=== PATIENT | male | born 1960 | race Caucasian/White ===

== ENCOUNTER 2017-08-31 09:37 | Inpatient (IN) | payer MEDICAID ==
[~2017-08-31] VITALS: Ht 167.6 cm; Wt 69.9 kg
[2017-08-31] MEDS ORDERED: METHYLPREDNISOLONE SOD SUCC 125 MG/2 ML VIAL IV STA (09:48)
[2017-08-31] MEDS ORDERED: LORAZEPAM 2MG/ML CPJ ONE (09:51)
[2017-08-31] MEDS ORDERED: ALBUTEROL (0.083%) 2.5MG/3ML NEB HHN SCH (10:00)
[2017-08-31] MEDS ORDERED: LORAZEPAM 2MG/ML CPJ IV ONE ×2 (10:00→10:30)
[2017-08-31 10:11] LABS: HEMATOCRIT. 25.8 % (42.0-52.0); HEMOGLOBIN. 8.8 g/dL (14.0-18.0); MEAN CORPUSCULAR HEMOGLOBIN 30.3 pg (28.0-32.0); MEAN CORPUSCULAR VOLUME 89.3 fL (80.0-94.0); MEAN PLATELET VOLUME 7.5 fl (7.4-10.4); PLATELET 307 x1000/uL (130-400); RED BLOOD CELL COUNT 2.89 mill/uL (4.7-6.1); RED CELL DISTRIBUTION WIDTH 21.3 % (11.6-14.6)
[2017-08-31 10:19] LABS: CARBON DIOXIDE 29 mEq/L (21-32); CHLORIDE 97 mEq/L (98-107)
[2017-08-31] MEDS ORDERED: AZITHROMYCIN 500 MG in DEXT 5% WATER 250 ML IV SCH (10:45)
[2017-08-31] MEDS ORDERED: CEFTRIAXONE 1 G PREMIX 50 ML IV ONE (10:45)
[2017-08-31 11:12] LABS: BG CARBOXYHEMOGLOBIN 0.3 % (0.5-1.5); BG DEOXYHEMOGLOBIN 0.6 % (0.0-5.0); BG FRACTION INSPIRED OXYGEN 100; BG HCO3 ACT 25.4 mmol/L (22.0-26.0); BG METHEMOGLOBIN 0.3 % (0.0-1.5); BG OXYGEN SATURATION 99.4 % (92.0-98.5); BG OXYHEMOGLOBIN 98.8 % (94.0-97.0); BG PCO2 30.9 mmHg (35.0-45.0); BG PH 7.533 (7.350-7.450); BG PO2 218.1 mmHg (75.0-100.0); BG SAMPLE SITE RIGHT BRACHIAL; BG TOTAL HEMOGLOBIN 9.2 g/dL (12.0-18.0); BG VENT MODE MASK - NRB
[2017-08-31 11:13] LABS: CLARITY URINE CLOUDY (CLEAR); COLOR URINE YELLOW (YELLOW); GLUCOSE URINE NEGATIVE (NEGATIVE); KETONES URINE NEGATIVE (NEGATIVE); LEUKOCYTE ESTERASE URINE 3+ (NEGATIVE); NITRITE URINE NEGATIVE (NEGATIVE); OCCULT BLOOD URINE 1+ (NEGATIVE); PH URINE 7.5 (4.5-8.0); PROTEIN URINE 4+ (NEGATIVE); SPECIFIC GRAVITY URINE 1.015 (1.005-1.030); UROBILINOGEN URINE 0.2 E.U./dL (0.2-1.0)
[2017-08-31 11:32] LABS: PLATELET ESTIMATE NORMAL
[2017-08-31] MEDS ORDERED: MAGNESIUM/ALUMINUM HYDROXIDE/SIMETHICONE 30ML UDC PO PRN (15:45)
[2017-08-31] MEDS ORDERED: LORAZEPAM 2MG/ML CPJ IV PRN (15:45)
[2017-08-31] MEDS ORDERED: ACETAMINOPHEN 325MG TABLET PO PRN (15:45)
[2017-08-31] MEDS ORDERED: IPRATROPIUM/ALBUTEROL 0.5-3(2.5)MG/3ML NEB INH PRN (15:45)
[2017-08-31] MEDS ORDERED: ENOXAPARIN 40MG/0.4ML SYR SUBCUT SCH (15:45)
[2017-08-31] MEDS ORDERED: GUAIFENESIN 200MG/10ML SUGAR FREE UDC PO PRN (15:45)
[2017-08-31] MEDS ORDERED: ENOXAPARIN 30MG/0.3ML SYR SUBCUT SCH ×2 (18:00→21:00)
[2017-08-31] MEDS ORDERED: LEVOFLOXACIN 500MG PREMIX 100 ML IV SCH ×2 (18:00→21:00)
[2017-08-31 18:23] VITALS: BP 149/107
[2017-08-31] MEDS ORDERED: ALPR0.25 PO (19:06)
[2017-08-31] MEDS ORDERED: METO-385 PO (19:06)
[2017-08-31] MEDS ORDERED: IBUP-2030 PO (19:06)
[2017-08-31] MEDS ORDERED: FLUT1DIS3 IH (19:06)
[2017-08-31] MEDS ORDERED: ATEN100T PO (19:06)
[2017-08-31] MEDS ORDERED: BUSP15TA3 PO (19:06)
[2017-08-31] MEDS ORDERED: GABA-531 PO (19:06)
[2017-08-31] MEDS ORDERED: CLONIDINE 0.2MG TABLET PO PRN (19:30)
[2017-08-31 20:00] VITALS: BP 176/115
[2017-08-31] MEDS: IPRATROPIUM/ALBUTEROL 0.5-3(2.5)MG/3ML NEB HHN SCH (20:48)
[2017-08-31] MEDS: BUDESONIDE 0.5MG/2ML NEB HHN SCH (20:48)
[2017-08-31] MEDS: QUETIAPINE FUMARATE 50MG TABLET PO SCH ×2 (21:00→21:02)
[2017-08-31] MEDS: PANTOPRAZOLE 40MG DR TABLET PO SCH (21:02)
[2017-08-31] MEDS: METOPROLOL TARTRATE 25MG TABLET PO SCH (21:02)
[2017-08-31] MEDS: METHYLPREDNISOLONE SOD SUCC 125 MG/2 ML VIAL IV SCH (21:02)
[2017-08-31] MEDS: GABAPENTIN 300MG CAPSULE PO SCH (21:02)
[2017-08-31] MEDS: SODIUM CHLORIDE 0.9% INJ 3ML FLUSH IVF SCH (21:04)
[2017-08-31] MEDS: HYDROCODONE/ACETAMINOPHEN 5/325MG TABLET PO PRN (21:22)
[2017-09-01] VITALS (10 sets, daily range): BP systolic 94–130; BP diastolic 50–80
[2017-09-01] MEDS: HYDROCODONE/ACETAMINOPHEN 5/325MG TABLET PO PRN ×4 (01:43→21:39)
[2017-09-01] MEDS: IPRATROPIUM/ALBUTEROL 0.5-3(2.5)MG/3ML NEB HHN SCH ×3 (02:18→21:05)
[2017-09-01] MEDS: GABAPENTIN 300MG CAPSULE PO SCH ×2 (05:36→13:52)
[2017-09-01] MEDS: SODIUM CHLORIDE 0.9% INJ 3ML FLUSH IVF SCH (05:36)
[2017-09-01] MEDS: METHYLPREDNISOLONE SOD SUCC 125 MG/2 ML VIAL IV SCH ×2 (05:36→13:52)
[2017-09-01 06:29] LABS: HEMATOCRIT. 22.9 % (42.0-52.0); HEMOGLOBIN. 7.4 g/dL (14.0-18.0); MEAN CORPUSCULAR HEMOGLOBIN 29.4 pg (28.0-32.0); MEAN PLATELET VOLUME 7.6 fl (7.4-10.4); PLATELET 188 x1000/uL (130-400); RED BLOOD CELL COUNT 2.52 mill/uL (4.7-6.1); RED CELL DISTRIBUTION WIDTH 21.3 % (11.6-14.6)
[2017-09-01] MEDS: PANTOPRAZOLE 40MG DR TABLET PO SCH (06:43)
[2017-09-01 07:41] LABS: CARBON DIOXIDE 25 mEq/L (21-32); CHLORIDE 98 mEq/L (98-107)
[2017-09-01] MEDS ORDERED: LOSARTAN POTASSIUM 50 MG TABLET PO SCH (09:00)
[2017-09-01] MEDS ORDERED: CEFTRIAXONE 1 G PREMIX 50 ML IV SCH (10:00)
[2017-09-01] MEDS: METOPROLOL TARTRATE 25MG TABLET PO SCH (10:32)
[2017-09-01] MEDS: BUDESONIDE 0.5MG/2ML NEB HHN SCH ×2 (16:05→21:05)
[2017-09-01 17:45] LABS: PLATELET ESTIMATE NORMAL
== END 2017-09-01 23:47 | disposition home or self-care (01) | DRG 133 ==
LOC: ER 09:56 → 5WST 11:30 → ENRESERV 12:57 → 7WST 23:59 → 6EST 09-01 15:42
PROVIDERS: ADMIT Internal Medicine; ATTEND Internal Medicine
PROC: 5A09357 Assistance with Respiratory Ventilation, Less than 24 Consecutive Hours, Continuous Positive Airway Pressure (ICD-10-PCS; 2017-08-31)
PROC: 5A1D70Z Performance of Urinary Filtration, Intermittent, Less than 6 Hours Per Day (ICD-10-PCS; 2017-08-31)
PROC: 30233N1 Transfusion of Nonautologous Red Blood Cells into Peripheral Vein, Percutaneous Approach (ICD-10-PCS; principal; 2017-09-01)
DX: J96.00 Acute respiratory failure, unspecified whether with hypoxia or hypercapnia (principal); I13.2 Hypertensive heart and chronic kidney disease with heart failure and with stage 5 chronic kidney disease, or end stage renal disease; J44.1 Chronic obstructive pulmonary disease with (acute) exacerbation; N18.6 End stage renal disease; I50.9 Heart failure, unspecified; N13.9 Obstructive and reflux uropathy, unspecified; N39.0 Urinary tract infection, site not specified; Z72.0 Tobacco use; Z87.442 Personal history of urinary calculi; Z99.2 Dependence on renal dialysis
CPT/HCPCS: 36415; 36600; 71010; 76700; 80053; 81001; 82375; 82805; 83605; 83880; 85025; 86850; 86900; 86920; 87040; 87077; 87086; 87186; 93005; 93970; 94640; 94660; 94664; 96361; 96365; 96367; 96375; 99285; J0456; J0696; J1650; J1956; J2060; J2930; J7030; J7050; J7060; J7611; J7620; J7626; P9016